=== PATIENT | female | born 1975 | race Two or more races ===

== ENCOUNTER → 2025-04-19 | Outpatient (CLI) | payer MEDICAID, SELFPAY ==
--- NOTE | 2025-04-19 12:00 | XR_ITS ---
Examination: MRI right ankle, without contrast Date and time of exam: April 19, 2025 1233 hours INDICATIONS: Patient slipped and fell one month ago with injury to the ankle, ankle pain joint locking Technique: Multiple axial sagittal and coronal images of the right ankle have been obtained with the Siemens high-resolution 1.5 Fara MRI scanner. Images obtained include T2-weighted fat-suppressed sagittal sections, TR 3500, TE 46, T2 weighted coronal fat suppressed images, TR 3050, TE 84, T2-weighted transverse fat suppressed images, TR 3260, TE 63, proton density transverse images, TR 4720 TE 46, and T1 weighted coronal images, TR 560, TE 13. Findings: No ankle effusion. Achilles tendon intact. Mild plantar fasciitis. No marrow edema, bone contusion, occult fracture or avascular necrosis. Dome the talus intact Anterior posterior inferior tibiofibular ligaments intact Partial tear of the posterior talar fibular ligament, axial image 22 Mild tendinitis posterior tibial flexor digitorum tendons Extensor tendons intact Negative for sinus Tarsi syndrome IMPRESSION: Mild plantar fasciitis No occult fracture bone contusion marrow edema or avascular necrosis Partial tear posterior talofibular ligament Tendinitis posterior tibial flexor digitorum tendons
== END | disposition home or self-care (01) ==
PROVIDERS: PCP Otolaryngology; Referring Provider Otolaryngology; Visit Provider Otolaryngology
DX: M72.2 Plantar fascial fibromatosis (principal); S93.491A Sprain of other ligament of right ankle, initial encounter; X58.XXXA Exposure to other specified factors, initial encounter; M76.821 Posterior tibial tendinitis, right leg
CPT/HCPCS: 73721

== ENCOUNTER → 2025-06-13 | Outpatient (CLI) | payer MEDICAID, SELFPAY ==
--- NOTE | 2025-06-13 15:15 | XR_ITS ---
Examination: Screening digital mammography, bilateral Computer aided detection 3-D breast Tomosynthesis, bilateral Date and time of exam: 06/13/2025, 1:53 p.m. Comparisons: None available. If prior mammograms can be obtained recommend comparison with today's exam. Indications: Screening Technique: Nonmagnified MLO, CC views of the breasts to been obtained, reconstructed from 3-D Tomosynthesis images. R2 computer aided detection program utilized for evaluation of suspicious masses and/or abnormal calcifications. 3-D Tomosynthesis images obtained. Technologist: Findings: There are scattered areas of fibroglandular density. No evidence of abnormal masses or suspicious calcifications. Impression: BI-RADS category 1: Negative findings (within normal) Recommend 1 year follow-up mammogram
== END | disposition home or self-care (01) ==
LOC: CDIM 13:46
PROVIDERS: Referring Provider Nurse Practitioner; Visit Provider Nurse Practitioner
DX: Z12.31 Encounter for screening mammogram for malignant neoplasm of breast (principal); R92.313 Mammographic fatty tissue density, bilateral breasts
CPT/HCPCS: 77063; 77067